=== PATIENT | male | born 1960 | race Caucasian/White ===

== ENCOUNTER 2020-12-10 18:09 | Emergency (ER) | payer BC ==
[~2020-12-10] VITALS: Ht 180.3 cm; Wt 97.7 kg
--- NOTE | 2020-12-10 18:22 | PHYS DOC ---
General Adult EDM: Chief Complaint: EYE PROBLEMS HPI: HPI: Patient is a 60-year-old male presenting for painless right eye vision loss. Patient has known history of ocular issues, has history of vitreous hemorrhage approximately 1 year ago. Reports atraumatic painless vision loss of right eye, upper left superior visual field that developed approximately 4 days ago but worsened in past 3 hours without any known inciting event, trauma as mentioned or ingestion. Nothing known makes better or worse. Reports he has had floaters chronically but states his vision has changed with development of blurred vision and subsequently feels that he cannot adequately see fully out of his right eye. He contacted his outpatient keyboard instrument tuner who is concern for possible retinal detachment and advised patient to proceed to our ER for formal evaluation. Patient otherwise denies any other significant medical issues, no recent fever, illness, recent travel, changes in medication, chest pain, shortness of breath, abdominal pain, dysuria, motor or sensory function changes, no neurologic deficits. Review of Systems: Review of Systems: Fourteen body systems of review of systems have been reviewed. See HPI for pertinent positives and negative responses, other koenig all other systems are negative, non-pertinent or non-contributory Heart Score: C/O Chest Pain: No Risk Factors: Risk Factors: DM, Current or recent (<one month) smoker, HTN, HLP, family history of CAD, obesity. Risk Scores: Score 0 - 3: 2.5% MACE over next 6 weeks - Discharge Home Score 4 - 6: 20.3% MACE over next 6 weeks - Admit for Clinical Observation Score 7 - 10: 72.7% MACE over next 6 weeks - Early Invasive Strategies Physical Exam: PE: Constitutional: Well developed, well nourished, no acute distress, non-toxic appearance. HENT: Normocephalic, atraumatic, bilateral external ears normal, oropharynx moist, no oral exudates, nose normal. Eyes: PERRLA, EOMI, conjunctiva normal, no discharge. B 20/20, L 20/20, R 20/40 IOP 19 L and 20 Rt Slit lamp exam performed and unremarkable Neck: Normal range of motion, no tenderness, supple, no stridor. Cardiovascular: Heart rate regular, sinus rhythm, no murmurs rubs or gallops Lungs & Thorax: Bilateral breath sounds clear to auscultation Abdomen: Bowel sounds normal, soft, no tenderness, no masses, no pulsatile masses. Nonsurgical abdomen, no peritoneal signs Skin: Warm, dry, no erythema, no rash. Back: No tenderness, no CVA tenderness. Extremities: No tenderness, no cyanosis, no clubbing, ROM intact, no edema. Neurologic: Alert and oriented X 3, grossly normal motor & sensory function, no focal deficits noted. Psychologic: Affect normal, judgement normal, mood normal. Current Patient Data: Vital Signs: Vital Signs Date Time Temp Pulse Resp B/P (MAP) Pulse Ox O2 Delivery O2 Flow Rate FiO2 12/10/20 18:20 98.8 77 18 138/84 (102) 98 Room Air 98.8 Vital Signs Date Time Temp Pulse Resp B/P (MAP) Pulse Ox O2 Delivery O2 Flow Rate FiO2 12/10/20 19:20 72 130/86 (101) 98 12/10/20 18:20 98.8 18 Room Air 98.8 EKG: EKG: EKG ordered and interpreted by myself 1826 hrs. as sinus rhythm at 68 bpm, unremarkable intervals, left axis deviation, left anterior fascicular block, no STEMI Radiology/Procedures: Radiology/Procedures: [] Course & Med Decision Making: Course & Med Decision Making VSS with HPI concerning for upper left superior vision field of right eye blurry for x4 days, PE concerning for right retinal detachment on bedside US I contacted patient's on-call optho and reviewed case and findings, recommendations were made to dilate both patient's pupils and have patient immediately proceed to their optho office for repeat evaluation. Patient to be transported by his I reviewed plan of care with patient and at bedside with good understanding, they were amenable to plan, all questions and concerns addressed Later called by Optho for closed loop feedback regarding patient case. Patient indeed had a retinal detachment. Arrangements were made to see retinal spec ialist within upcoming 24 hours in outpatient setting for fixation. This patient required critical care. Due to the fact that the patient required a significant amount of one on one physician patient contact time, ordering and review of studies, arranging urgent treatment with development of a management plan, evaluation of patients response to treatment with frequent reassessments, and discussions with other providers this patient required critical care time 40mins Critical care time was indicated due to the inherent instability and/or potential for instability in this patient. The critical care time that is allocated to this patient is above and beyond any time spent on any other billable procedures performed on this patient. Dragon Disclaimer: Dragon Disclaimer: This electronic medical record was generated, in whole or in part, using a voice recognition dictation system. Ultrasound Progress Bedside right ocular ultrasound performed concerning for right retinal detachment Departure Departure Impression: Primary Impression: Vision changes Disposition: HOME / SELF CARE / HOMELESS Condition: GUARDED Additional Instructions: As discussed prior to ER departure, please proceed immediately to your outpatient ophthalmology office. As discussed, I spoke with the specialist and they would like to repeat certain aspects of history and physical examination that were first performed in ER setting in addition to other advanced testing. If any concerning signs or symptoms present please do not hesitate to come back for repeat evaluation. It was a pleasure to take care of you and I wish you the best going forward YAO LAWRENCE DO December 10, 2020 18:22
[2020-12-10] MEDS ORDERED: FLUORESCEIN OPHTH TEST STRIP. OU ONE (19:00)
[2020-12-10] MEDS ORDERED: TETRACAINE 0.5% OPHTH SOLUTION 4ML BOTTLE. OU ONE (19:00)
[2020-12-10] MEDS ORDERED: TROPICAMIDE 1% OPHTH SOLUTION 15ML BOTTLE. OU ONE (19:15)
[2020-12-10 19:20] VITALS: BP 130/86
--- NOTE | 2020-12-11 02:27 | EKG ---
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
== END 2020-12-10 19:20 | disposition home or self-care (01) ==
LOC: ER 18:09
DX: H53.8 Other visual disturbances (principal)
CPT/HCPCS: 82962; 93005; 99284